=== PATIENT | male | born 2000 | race Caucasian/White ===

== ENCOUNTER 2022-03-17 03:15 | Outpatient (CLI) | payer OTHER, SELFPAY ==
[2022-03-17 11:27] LABS: Ammonia 53 umol/L (11-32)
[2022-03-17 11:30] LABS: VALPROIC ACID 72.8 ug/mL
[2022-03-17 12:12] LABS: ALT 19 U/L (16-63); AST 7 U/L (15-37); Albumin 3.9 g/dL (3.4-5.0); Alkaline Phosphatase 80 U/L (46-116); Bilirubin, Direct 0.1 mg/dL (0.0-0.2); Bilirubin, Total 0.3 mg/dL (0.2-1.0); Total Protein 6.9 g/dL (6.4-8.2)
[2022-03-28 09:37] LABS: Free 56 nmol/mL (25-54)
[2022-03-28 09:38] LABS: Interpretation See Comments
== END 2022-03-17 03:16 | disposition home or self-care (01) ==
LOC: LBO 03:15
PROVIDERS: Visit Provider Psychiatry & Neurology Neurology
DX: G40.B09 Juvenile myoclonic epilepsy, not intractable, without status epilepticus (principal); Z51.81 Encounter for therapeutic drug level monitoring
CPT/HCPCS: 36415; 80076; 82379; 80164; 82140

== ENCOUNTER 2022-04-08 02:11 | Outpatient (CLI) | payer OTHER, SELFPAY ==
[2022-04-08 14:30] LABS: Ammonia < 10 umol/L (11-32)
== END 2022-04-08 02:12 | disposition home or self-care (01) ==
LOC: LBO 02:11
PROVIDERS: Visit Provider Psychiatry & Neurology Neurology
DX: G40.B09 Juvenile myoclonic epilepsy, not intractable, without status epilepticus (principal)
CPT/HCPCS: 36415; 82140